=== PATIENT | male | born 1965 | race African-American/Black ===

== ENCOUNTER 2019-06-17 23:03 | Inpatient (IN) | payer SELFPAY ==
[~2019-06-17] VITALS: Ht 170.2 cm; Wt 85.3 kg
[~2019-06-17 23:03] MED LIST: IBUPROFEN600 MG ORAL; PENICILLIN V P500 MG PO; VICODIN 5-5001 EACH PO
[2019-06-17 23:12] VITALS: BP 174/97
--- NOTE | 2019-06-17 23:12 | NUR ---
ED Nurse Note: Patient HAYLEE DYKES from home c/o left sided pain radiating to his back x1 day. Denies nausea, vomiting, diarrhea. Afebrile. Per pt, pain started after he ate spicy food. Not in any distress. Pt placed on rn cardiac rehab.
--- NOTE | 2019-06-17 23:15 | NUR ---
ED Nurse Note: ERMD at bedside.
--- NOTE | 2019-06-17 23:18 | NUR ---
ED Nurse Note: IV line established. Blood and urine specimen collected and sent to lab.
--- NOTE | 2019-06-17 23:24 | Emergency Room Report ---
History of Present Illness General Chief Complaint: Abdominal Pain Source: Patient Present Illness HPI 54-year-old male presents ED for evaluation. Brought in by EMS from home. Complaining of left-sided pain which started tonight. Dull, 8 out of 10, radiating to back. Denies nausea or vomiting. Denies epigastric pain. Denies diarrhea. States that he was moving heavy objects earlier. No other aggravating relieving factors. Denies any other associated symptoms COVID-19 risk:Travel to affect: No Has patient experienced baugh: No Allergies: Coded Allergies: No Known Allergies (Unverified , 06/17/19) Patient History Past Medical History: psych hx Past Surgical History: none Pertinent Family History: none Social History: Denies: smoking, alcohol use, drug use Immunizations: UTD Reviewed Nursing Documentation: PMH: Agreed; PSxH: Agreed Nursing Documentation-PMH History Of Psychiatric Problem: Yes - depression and anxiety Review of Systems All Other Systems: negative except mentioned in HPI Physical Exam Vital Signs Date Time Temp Pulse Resp B/P (MAP) Pulse Ox O2 Delivery O2 Flow Rate FiO2 06/17/19 23:06 98.2 97 20 174/97 (122) 97 Room Air Sp02 EP Interpretation: reviewed, normal General Appearance: no apparent distress, alert, GCS 15, non-toxic Head: normocephalic, atraumatic Eyes: bilateral eye normal inspection, bilateral eye PERRL ENT: hearing grossly normal, normal pharynx, no angioedema, normal voice Neck: full range of motion, supple/symm/no masses Respiratory: chest non-tender, lungs clear, normal breath sounds, speaking full sentences Cardiovascular #1: regular rate, rhythm, no edema Cardiovascular #2: 2+ carotid (R), 2+ carotid (L), 2+ radial (R), 2+ radial (L) , 2+ dorsalis pedis (R), 2+ dorsalis pedis (L) Gastrointestinal: normal bowel sounds, non tender, soft, non-distended, no guarding, no rebound Rectal: deferred Genitourinary: normal inspection, CVA tenderness (L) Musculoskeletal: back normal, normal range of motion, gait/station normal, non- tender Neurologic: alert, motor strength/tone normal, oriented x3, sensory intact, responsive, speech normal Psychiatric: judgement/insight normal, memory normal, mood/affect normal, no suicidal/homicidal ideation Reflexes: 3+ bicep (R), 3+ bicep (L), 3+ tricep (R), 3+ tricep (L), 3+ knee (R) , 3+ knee (L) Skin: no rash Lymphatic: no adenopathy Medical Decision Making Diagnostic Impression: Primary Impression: Kidney stone Additional Impression: Intractable pain ER Course Hospital Course 54-year-old M presents to ED with L flank pain Differential diagnosis includes-appendicitis, cholecystitis, kidney stone, pyelonephritis Clinical course Patient placed on stretcher. After initial history and physical I ordered labs , IV fluids, pain medications and CT scan Labs - no leukocytosis, BUN 19, LFTs normal, UA - gross blood CT scan shows distal 15mm stone with severe hydroureteroneprhosis Patient has continued pain and vomiting. Patient will require admission. Discussed with Dr. Chappell (urology) and he will consult Patient admitted to Dr Hernandez's service I feel this is a highly complex case requiring extensive working including EKG/ Rhythm strip, Xray/CT/US, Blood/urine lab work, repeat exams while in ED, and administration of strong opiates/narcotics for pain control, admission to hospital or close patient follow up. Diagnosis - kidney stone, intractable pain admitted to floor in serious condition Labs Test 06/17/19 23:15 06/17/19 23:24 Urine Color Pale yellow Urine Appearance Slightly cloudy Urine pH 7 (4.5-8.0) Urine Specific [place] 1.005 (1.005-1.035) Urine Protein 1+ (NEGATIVE) Urine Glucose (UA) Negative (NEGATIVE) Urine Ketones 3+ (NEGATIVE) Urine Blood 5+ (NEGATIVE) Urine Nitrite Negative (NEGATIVE) Urine Bilirubin Negative (NEGATIVE) Urine Urobilinogen Normal MG/DL (0.0-1.0) Urine Leukocyte Esterase Trace (NEGATIVE) Urine RBC Tntc /HPF (0 - 0) Urine WBC 0-2 /HPF (0 - 0) Urine Squamous Epithelial Cells None /LPF (NONE/OCC) Urine Bacteria Few /HPF (NONE) White Blood Count 6.5 K/UL (4.8-10.8) Red Blood Count 5.03 M/UL (4.70-6.10) Hemoglobin 14.4 G/DL (14.2-18.0) Hematocrit 41.2 % (42.0-52.0) Mean Corpuscular Volume 82 FL (80-99) Mean Corpuscular Hemoglobin 28.7 PG (27.0-31.0) Mean Corpuscular Hemoglobin Concent 35.0 G/DL (32.0-36.0) Red Cell Distribution Width 12.3 % (11.6-14.8) Platelet Count 199 K/UL (150-450) Mean Platelet Volume 7.3 FL (6.5-10.1) Neutrophils (%) (Auto) 65.6 % (45.0-75.0) Lymphocytes (%) (Auto) 25.5 % (20.0-45.0) Monocytes (%) (Auto) 7.4 % (1.0-10.0) Eosinophils (%) (Auto) 0.6 % (0.0-3.0) Basophils (%) (Auto) 0.9 % (0.0-2.0) Sodium Level 139 MMOL/L (136-145) Potassium Level 3.8 MMOL/L (3.5-5.1) Chloride Level 101 MMOL/L (98-107) Carbon Dioxide Level 23 MMOL/L (21-32) Anion Gap 15 mmol/L (5-15) Blood Urea Nitrogen 19 mg/dL (7-18) Creatinine 1.3 MG/DL (0.55-1.30) Estimat Glomerular Filtration Rate > 60 mL/min (>60) Glucose Level 107 MG/DL (74-106) Calcium Level 9.4 MG/DL (8.5-10.1) Total Bilirubin 0.7 MG/DL (0.2-1.0) Aspartate Amino Transf (AST/SGOT) 20 U/L (15-37) Alanine Aminotransferase (ALT/SGPT) 36 U/L (12-78) Alkaline Phosphatase 74 U/L (46-116) Total Protein 7.7 G/DL (6.4-8.2) Albumin 4.1 G/DL (3.4-5.0) Globulin 3.6 g/dL Albumin/Globulin Ratio 1.1 (1.0-2.7) Lipase 59 U/L (73-393) CT/MRI/US Diagnostic Results CT/MRI/US Diagnostic Results : Imaging Test Ordered: CT a/P Impression COMPARISON: No relevant prior studies available. FINDINGS: Lung bases: No mass. No consolidation. ABDOMEN: Liver: Enlarged. Gallbladder and bile ducts: Unremarkable. Pancreas: No ductal dilation. Spleen: Unremarkable. Adrenals: Unremarkable. Kidneys and ureters: Right kidney is unremarkable. Nonobstructive stones in the left kidney. Severe left hydroureteronephrosis secondary to a 15 mm stone in the distal ureter. Stomach and bowel: No bowel obstruction. No bowel wall thickening. Colonic diverticulosis. PELVIS: Appendix: No evidence of appendicitis. Bladder: No stones. Reproductive: Unremarkable. ABDOMEN and PELVIS: Intraperitoneal space: Unremarkable. Bones/joints: No acute fractures. Soft tissues: Unremarkable. Vasculature: No abdominal aortic aneurysm. Lymph nodes: No enlarged lymph nodes. IMPRESSION: Nonobstructive stones in the left kidney. Severe left hydroureteronephrosis secondary to a 15 mm stone in the distal ureter. Hepatomegaly. Colonic diverticulosis. Last Vital Signs Date Time Temp Pulse Resp B/P (MAP) Pulse Ox O2 Delivery O2 Flow Rate FiO2 06/17/19 23:06 98.2 97 20 174/97 (122) 97 Room Air Status: improved Disposition: ADMITTED INPATIENT Condition: Serious Abram Delgado MD Jun 17, 2019 23:24
[2019-06-17] MEDS ORDERED: Ketorolac 30mg Inj IV ONE (23:30)
[2019-06-17 23:47] LABS: APPEARANCE,URINE SLIGHTLY CLOUDY; BILIRUBIN, URINE NEGATIVE (NEGATIVE); COLOR,URINE PALE YELLOW; GLUCOSE, URINE (UA) NEGATIVE (NEGATIVE); KETONES,URINE 3+ (NEGATIVE); NITRITE,URINE NEGATIVE (NEGATIVE); PH,URINE 7 (4.5-8.0); PROTEIN,URINE 1+ (NEGATIVE); UROBILINOGEN,URINE NORMAL MG/DL (0.0-1.0)
[2019-06-17 23:52] LABS: ANION GAP 15 mmol/L (5-15); BLOOD UREA NITROGEN 19 mg/dL (7-18); CALCIUM 9.4 MG/DL (8.5-10.1); CARBON DIOXIDE 23 MMOL/L (21-32); CHLORIDE 101 MMOL/L (98-107); CREATININE 1.3 MG/DL (0.55-1.30); POTASSIUM 3.8 MMOL/L (3.5-5.1); SODIUM 139 MMOL/L (136-145)
[2019-06-17 23:54] LABS: BASOPHILS % (AUTO) 0.9 % (0.0-2.0); EOSINOPHILS % (AUTO) 0.6 % (0.0-3.0); HEMATOCRIT 41.2 % (42.0-52.0); HEMOGLOBIN 14.4 G/DL (14.2-18.0); LYMPHOCYTES % (AUTO) 25.5 % (20.0-45.0); MEAN CORPUSCULAR VOLUME 82 FL (80-99); MONOCYTES % (AUTO) 7.4 % (1.0-10.0); NEUTROPHILS % (AUTO) 65.6 % (45.0-75.0); PLATELET COUNT 199 K/UL (150-450); RED BLOOD COUNT 5.03 M/UL (4.70-6.10); RED CELL DISTRIBUTION WIDTH 12.3 % (11.6-14.8); WHITE BLOOD COUNT 6.5 K/UL (4.8-10.8)
[2019-06-17 23:57] LABS: ALANINE AMINOTRANSFERASE 36 U/L (12-78); ALBUMIN 4.1 G/DL (3.4-5.0); ALBUMIN/GLOBULIN RATIO 1.1 (1.0-2.7); ALKALINE PHOSPHATASE 74 U/L (46-116); ASPARTATE AMINO TRANSFERASE 20 U/L (15-37); BILIRUBIN,TOTAL 0.7 MG/DL (0.2-1.0)
[2019-06-18] VITALS (7 sets, daily range): BP systolic 143–166; BP diastolic 75–103
[2019-06-18] MEDS ORDERED: Morphine Sulfate 4mg/ml Inj (IV USE ONLY) IVP ONE
[2019-06-18 00:12] LABS: LEUKOCYTE ESTERASE ,URINE TRACE (NEGATIVE)
[2019-06-18] MEDS ORDERED: HYDROmorphone 1mg/ml Carpuject IVP ONE ×2 (00:30→04:30)
--- NOTE | 2019-06-18 00:50 | NUR ---
ED Nurse Note: Pt was taken for CT via broderick, accompanied by a tech.
--- NOTE | 2019-06-18 01:17 | NUR ---
ED Nurse Note: Pt came back from CT, not in any distress.
--- NOTE | 2019-06-18 01:33 | Diagnostic Imaging Report ---
EXAM: CT Abdomen and Pelvis Without Intravenous Contrast CLINICAL HISTORY: ABD PAIN TECHNIQUE: Axial computed tomography images of the abdomen and pelvis without intravenous contrast. CTDI is 5 mGy and DLP is 292 mGy-cm. One or more of the following dose reduction techniques were used: automated exposure control, adjustment of the mA and/or kV according to patient size, use of iterative reconstruction technique. COMPARISON: No relevant prior studies available. FINDINGS: Lung bases: No mass. No consolidation. ABDOMEN: Liver: Enlarged. Gallbladder and bile ducts: Unremarkable. Pancreas: No ductal dilation. Spleen: Unremarkable. Adrenals: Unremarkable. Kidneys and ureters: Right kidney is unremarkable. Nonobstructive stones in the left kidney. Severe left hydroureteronephrosis secondary to a 15 mm stone in the distal ureter. Stomach and bowel: No bowel obstruction. No bowel wall thickening. Colonic diverticulosis. PELVIS: Appendix: No evidence of appendicitis. Bladder: No stones. Reproductive: Unremarkable. ABDOMEN and PELVIS: Intraperitoneal space: Unremarkable. Bones/joints: No acute fractures. Soft tissues: Unremarkable. Vasculature: No abdominal aortic aneurysm. Lymph nodes: No enlarged lymph nodes. IMPRESSION: Nonobstructive stones in the left kidney. Severe left hydroureteronephrosis secondary to a 15 mm stone in the distal ureter. Hepatomegaly. Colonic diverticulosis.
[2019-06-18] MEDS ORDERED: MIRTAZAPINE15 M3 ORAL (02:46)
--- NOTE | 2019-06-18 04:17 | NUR ---
ED Nurse Note: Report given to Anya RN.
--- NOTE | 2019-06-18 04:17 | NUR ---
NURSE NOTES: Receive a report from VLAD Ordaz from ED.
--- NOTE | 2019-06-18 04:35 | NUR ---
TRANSFER TO FLOOR: Patient transferred to Medr unit. Report given to Anya RN. Pt alert and oriented, verbally responsive. No SOB. Breathing even and unlabored. Sinus rhythm. IV line on left AC 20g patent and intact. Med recon done. No skin issues. All belongings was gievn to the patient. Pt's home medication was kept inside the medroom.
--- NOTE | 2019-06-18 04:45 | NUR ---
NURSE NOTES: Pt admitted from ED via gurney. Awake and alert. No acute distress noted. Despite getting pain medication pt still has pain 8/10. Breathing is even and non labored. No N/V noted. IV S/L on left AC without infiltration. Given room orientation. Checking belongings. Call light within reach. Will continue to monitor.
--- NOTE | 2019-06-18 05:00 | NUR ---
NURSE NOTES: Call Dr. Decker's office for admission order.
--- NOTE | 2019-06-18 05:07 | NUR ---
NURSE NOTES: Receive call-back from Dr. Anderson for admission orders including resuming home medication, consult with Dr. Chappell for Urology, prn medication. Read back orders. Order noted and carried out. Will continue to monitor.
[2019-06-18] MEDS ORDERED: HYDROmorphone 1mg/ml Carpuject IVP PRN (05:15)
--- NOTE | 2019-06-18 07:00 | NUR ---
NURSE NOTES: Pt had self-voiding in strainer but did not see any sediment. Pain is still 7/10. Given pain medication as ordered. Explain for NPO except ice chips and po medication d/t possible procedure. Pt understood. Will continue to monitor.
[2019-06-18] MEDS: HYDROmorphone 1mg/ml Carpuject IVP PRN ×5 (07:02→22:23)
--- NOTE | 2019-06-18 07:30 | NUR ---
NURSE NOTES: Patient is in bed awake and able to verbalize needs. Stable. C/o 6/10 pain, pain medication administration schedule discussed with patient, verbalized understanding. Patient instructed to use call light for assistance, verbalized understanding. Strainer with urinal at bedside. Patient agrees with plan of care. All safety measures provided. Patient is in bed in locked and lowest position with call light within reach. All needs met at this time. Will continue to monitor.
--- NOTE | 2019-06-18 07:30 | NUR ---
HAND-OFF: Report given to VLAD Knox. Round is done.
[2019-06-18 08:23] LABS: BASOPHILS % (AUTO) 1.3 % (0.0-2.0); HEMATOCRIT 40.5 % (42.0-52.0); HEMOGLOBIN 13.7 G/DL (14.2-18.0); INR 0.9 (0.9-1.1); LYMPHOCYTES % (AUTO) 11.2 % (20.0-45.0); MEAN CORPUSCULAR VOLUME 84 FL (80-99); MONOCYTES % (AUTO) 7.7 % (1.0-10.0); NEUTROPHILS % (AUTO) 79.7 % (45.0-75.0); PLATELET COUNT 203 K/UL (150-450); RED CELL DISTRIBUTION WIDTH 12.8 % (11.6-14.8); WHITE BLOOD COUNT 8.9 K/UL (4.8-10.8)
--- NOTE | 2019-06-18 08:45 | NUR ---
NURSE NOTES: patient taken to radiology for cxr.
[2019-06-18 09:18] LABS: ALANINE AMINOTRANSFERASE 45 U/L (12-78); ALBUMIN 3.8 G/DL (3.4-5.0); ALKALINE PHOSPHATASE 72 U/L (46-116); ANION GAP 14 mmol/L (5-15); ASPARTATE AMINO TRANSFERASE 31 U/L (15-37); BILIRUBIN,TOTAL 0.6 MG/DL (0.2-1.0); BLOOD UREA NITROGEN 20 mg/dL (7-18); CALCIUM 8.9 MG/DL (8.5-10.1); CARBON DIOXIDE 21 MMOL/L (21-32); CHLORIDE 104 MMOL/L (98-107); CREATININE 1.4 MG/DL (0.55-1.30); POTASSIUM 4.8 MMOL/L (3.5-5.1); SODIUM 139 MMOL/L (136-145)
--- NOTE | 2019-06-18 09:31 | NUR ---
RADIOLOGY DEPT., CHEST X-RAY PERFORMED.-P.DYE
--- NOTE | 2019-06-18 10:05 | Diagnostic Imaging Report ---
EXAM: XR Chest, 2 Views CLINICAL HISTORY: PREOP TECHNIQUE: Frontal and lateral views of the chest. COMPARISON: No relevant prior studies available. FINDINGS: Lungs: Subtle linear band in the lingula may represent linear atelectasis versus scarring. The lungs are otherwise clear. Pleural space: Unremarkable. The costophrenic angle are sharp. No visible pneumothorax. Heart: Unremarkable. No cardiomegaly. Mediastinum: Unremarkable. Bones/joints: Unremarkable. IMPRESSION: Subtle linear band in the lingula may represent linear atelectasis versus scarring.
--- NOTE | 2019-06-18 17:27 | History and Physical ---
History of Present Illness General Date patient seen: Jun 18, 2019 Reason for Hospitalization: nephrolithiasis Present Illness HPI Mr. Temple is a 54 yyear old male with no PMHx other than depression, presenting with 1 day of acute suprapubic pain. Allergies: Coded Allergies: No Known Allergies (Unverified , 06/17/19) Medication History Scheduled Mirtazapine* (Mirtazapine*), 15 MG ORAL BEDTIME, (Reported) Discontinued Medications Hydrocodone/Acetaminophen 5-500 (Vicodin 5-500), 1 TAB PO Q8H Discontinued Reason: Therapy completed Ibuprofen* (Motrin*), 600 MG ORAL THREE TIMES A DAY Discontinued Reason: Therapy completed Penicillin V Potassium* (Penvk*), 500 MG PO Q6H Discontinued Reason: Therapy completed Patient History Healthcare decision maker Resuscitation status Full Code Advanced Directive on File Review of Systems Constitutional: Denies: no symptoms, see HPI, chills, sweats, fever, malaise, weakness, other Eye: Denies: no symptoms, see HPI, eye pain, blurred vision, tearing, double vision, nose pain, nose congestion, acuity changes, discharge, other ENT: Denies: no symptoms, see HPI, ear pain, ear discharge, nose pain, nose congestion, throat pain, throat swelling, mouth pain, hearing loss, nasal discharge, other Respiratory: Denies: no symptoms, see HPI, cough, orthopnea, shortness of breath, stridor, wheezing, [place], sputum, other Cardiovascular: Denies: no symptoms, see HPI, chest pain, edema, palpitations, syncope, PND, other Gastrointestinal: Denies: no symptoms, see HPI, abdominal pain, constipation, diarrhea, nausea, vomiting, melena, hematemesis, other Genitourinary: Reports: pain Musculoskeletal: Denies: no symptoms, see HPI, back pain, gout, joint pain, joint swelling, muscle pain, muscle stiffness, other Skin: Denies: no symptoms, see HPI, rash, change in color, change in hair/nails , dryness, lesions, other Psychiatric: Denies: no symptoms, see HPI, prior hx, anxiety, depressed feelings, emotional problems, SI, HI, hallucinations, other Neurological: Denies: no symptoms, see HPI, headache, numbness, paresthesia, seizure, tingling, tremors, focal weakness, syncope, dizziness, other Endocrine: Denies: no symptoms, see HPI, excessive sweating, flushing, intolerance to temperature, increased thirst, increased urine, unexplained weight loss, other Hematologic/Lymphatic: Denies: no symptoms, see HPI, anemia, blood clots, easy bleeding, easy bruising, swollen glands, diathesis, other Physical Exam General Appearance: alert, mild distress HEENT: normocephalic, atraumatic Neck: supple Respiratory/Chest: lungs clear, normal breath sounds, no respiratory distress Cardiovascular/Chest: normal rate, regular rhythm Abdomen: non tender, soft Neurologic: alert, oriented x 3 Last 24 Hour Vital Signs Date Time Temp Pulse Resp B/P (MAP) Pulse Ox O2 Delivery O2 Flow Rate FiO2 06/18/19 16:00 98.4 74 18 149/87 (107) 95 06/18/19 12:00 98.5 76 19 145/94 (111) 99 06/18/19 11:41 76 145/94 06/18/19 09:00 Room Air 06/18/19 08:00 98.3 79 18 143/95 (111) 98 06/18/19 04:55 Room Air 06/18/19 04:35 98.0 79 19 133/74 99 Room Air 06/18/19 03:33 97.9 85 19 149/75 96 Room Air 06/18/19 01:15 98.0 88 18 145/88 97 Room Air 06/18/19 01:02 98.3 06/18/19 00:28 98.3 06/17/19 23:59 98.3 06/17/19 23:12 97 20 Room Air 06/17/19 23:12 98.2 97 20 174/97 97 Room Air 06/17/19 23:06 98.2 97 20 174/97 (122) 97 Room Air Laboratory Tests Test 06/17/19 23:15 06/17/19 23:24 06/18/19 07:40 Urine Color Pale yellow Urine Appearance Slightly cloudy Urine pH 7 (4.5-8.0) Urine Specific [place] 1.005 (1.005-1.035) Urine Protein 1+ (NEGATIVE) H Urine Glucose (UA) Negative (NEGATIVE) Urine Ketones 3+ (NEGATIVE) H Urine Blood 5+ (NEGATIVE) H Urine Nitrite Negative (NEGATIVE) Urine Bilirubin Negative (NEGATIVE) Urine Urobilinogen Normal MG/DL (0.0-1.0) Urine Leukocyte Esterase Trace (NEGATIVE) H Urine RBC Tntc /HPF (0 - 0) H Urine WBC 0-2 /HPF (0 - 0) Urine Squamous Epithelial Cells None /LPF (NONE/OCC) Urine Bacteria Few /HPF (NONE) White Blood Count 6.5 K/UL (4.8-10.8) 8.9 K/UL (4.8-10.8) Red Blood Count 5.03 M/UL (4.70-6.10) 4.80 M/UL (4.70-6.10) Hemoglobin 14.4 G/DL (14.2-18.0) 13.7 G/DL (14.2-18.0) L Hematocrit 41.2 % (42.0-52.0) L 40.5 % (42.0-52.0) L Mean Corpuscular Volume 82 FL (80-99) 84 FL (80-99) Mean Corpuscular Hemoglobin 28.7 PG (27.0-31.0) 28.4 PG (27.0-31.0) Mean Corpuscular Hemoglobin Concent 35.0 G/DL (32.0-36.0) 33.7 G/DL (32.0-36.0) Red Cell Distribution Width 12.3 % (11.6-14.8) 12.8 % (11.6-14.8) Platelet Count 199 K/UL (150-450) 203 K/UL (150-450) Mean Platelet Volume 7.3 FL (6.5-10.1) 7.3 FL (6.5-10.1) Neutrophils (%) (Auto) 65.6 % (45.0-75.0) 79.7 % (45.0-75.0) H Lymphocytes (%) (Auto) 25.5 % (20.0-45.0) 11.2 % (20.0-45.0) L Monocytes (%) (Auto) 7.4 % (1.0-10.0) 7.7 % (1.0-10.0) Eosinophils (%) (Auto) 0.6 % (0.0-3.0) 0.0 % (0.0-3.0) Basophils (%) (Auto) 0.9 % (0.0-2.0) 1.3 % (0.0-2.0) Sodium Level 139 MMOL/L (136-145) 139 MMOL/L (136-145) Potassium Level 3.8 MMOL/L (3.5-5.1) 4.8 MMOL/L (3.5-5.1) Chloride Level 101 MMOL/L (98-107) 104 MMOL/L (98-107) Carbon Dioxide Level 23 MMOL/L (21-32) 21 MMOL/L (21-32) Anion Gap 15 mmol/L (5-15) 14 mmol/L (5-15) Blood Urea Nitrogen 19 mg/dL (7-18) H 20 mg/dL (7-18) H Creatinine 1.3 MG/DL (0.55-1.30) 1.4 MG/DL (0.55-1.30) H Estimat Glomerular Filtration Rate > 60 mL/min (>60) > 60 mL/min (>60) Glucose Level 107 MG/DL (74-106) H 124 MG/DL (74-106) H Calcium Level 9.4 MG/DL (8.5-10.1) 8.9 MG/DL (8.5-10.1) Total Bilirubin 0.7 MG/DL (0.2-1.0) 0.6 MG/DL (0.2-1.0) Aspartate Amino Transf (AST/SGOT) 20 U/L (15-37) 31 U/L (15-37) Alanine Aminotransferase (ALT/SGPT) 36 U/L (12-78) 45 U/L (12-78) Alkaline Phosphatase 74 U/L (46-116) 72 U/L (46-116) Total Protein 7.7 G/DL (6.4-8.2) 7.5 G/DL (6.4-8.2) Albumin 4.1 G/DL (3.4-5.0) 3.8 G/DL (3.4-5.0) Globulin 3.6 g/dL 3.7 g/dL Albumin/Globulin Ratio 1.1 (1.0-2.7) 1.0 (1.0-2.7) Lipase 59 U/L (73-393) L Prothrombin Time 9.8 SEC (9.30-11.50) Prothromb Time International Ratio 0.9 (0.9-1.1) Activated Partial Thromboplast Time 26 SEC (23-33) Height (Feet): 5 Height (Inches): 8.00 Weight (Pounds): 175 Medications Current Medications Medications (Trade) Dose Ordered Sig/Raeann Route PRN Reason Start Time Stop Time Status Last Admin Dose Admin Acetaminophen (Tylenol) 650 mg Q6H PRN ORAL Mild Pain/Temp > 100.5 06/18/19 05:15 07/18/19 05:14 Amlodipine Besylate (Norvasc) 5 mg DAILY ORAL 06/18/19 11:30 07/18/19 11:29 06/18/19 11:41 Clonidine HCl (Catapres Tab) 0.1 mg BID PRN ORAL For High Blood Pressure 06/18/19 05:15 07/18/19 05:14 Hydromorphone HCl (Dilaudid) 0.5 mg Q2H PRN IVP Moderate Pain (Pain Scale 4-6) 06/18/19 05:15 06/25/19 05:14 Hydromorphone HCl (Dilaudid) 1 mg Q2H PRN IVP Severe Pain (Pain Scale 7-10) 06/18/19 05:15 06/25/19 05:14 06/18/19 16:24 Mirtazapine (Remeron) 15 mg BEDTIME ORAL 06/18/19 21:00 07/18/19 20:59 Ondansetron HCl (Zofran) 4 mg Q6H PRN IVP Nausea & Vomiting 06/18/19 05:15 07/18/19 05:14 Sodium Chloride 1,000 ml @ 100 mls/hr Q10H IV 06/18/19 05:15 07/18/19 05:14 06/18/19 05:15 Tamsulosin HCl (Flomax) 0.4 mg BEDTIME ORAL 06/18/19 21:00 07/18/19 20:59 Assessment/Plan Problem List: (1) Kidney stone ICD Codes: N20.0 - Calculus of kidney SNOMED: 84905962 (2) Intractable pain ICD Codes: R52 - Pain, unspecified SNOMED: 23016545 (3) Hydronephrosis ICD Codes: N13.30 - Unspecified hydronephrosis SNOMED: 60797918 Status: stable Diagnosis [place] I: Mr. Temple is a 54 M with a 15 mm kidney stone. #Left nephrolithiasis, 15 mm #Severe left sided hydroureteronephrosis -CT with above findings seen. -Urology contacted. Will see tmrw. -NPO after MN. -Pain control -IVF Time of note doesn't reflect time of encounter. Darlin Alaniz M.D. Jun 18, 2019 17:27
--- NOTE | 2019-06-18 19:15 | NUR ---
NURSE NOTES: Receive a report from VLAD Knox. Round is done. After pain medication given, pain level is 6/10. No acute distress noted. No stone passing yet. On NPO except ice chips and oral medication. Call light within reach. Will continue to monitor.
--- NOTE | 2019-06-18 19:26 | NUR ---
HAND-OFF: Report given to Evelyneo RN. Patient is stable.
[2019-06-18] MEDS: Tamsulosin 0.4mg cap ORAL SCH (21:08)
[2019-06-19] VITALS (7 sets, daily range): BP systolic 131–158; BP diastolic 51–98
[2019-06-19] MEDS: HYDROmorphone 1mg/ml Carpuject IVP PRN ×6 (00:55→22:00)
--- NOTE | 2019-06-19 07:00 | NUR ---
NURSE NOTES: Pt has been getting pain medication but says that medication did not work much. Will endorse to AM shift to follow up with MD. Will continue to monitor.
--- NOTE | 2019-06-19 07:30 | NUR ---
HAND-OFF: Report given to VLAD Knox. No noted stone passing after urination.
--- NOTE | 2019-06-19 07:30 | NUR ---
NURSE NOTES: Patient is in bed awake and able to verbalize needs. Stable. Denies pain or SOB. Patient instructed to use call light for assistance, verbalized understanding. Patient is in bed in locked and lowest position with call light within reach. All needs met at this time. Will continue to monitor.
[2019-06-19] MEDS ORDERED: HYDROcodone/Acetamin 5/325 tab ORAL PRN (13:30)
[2019-06-19] MEDS: HYDROcodone/Acetamin 10/325 tab ORAL PRN ×3 (13:44→23:06)
--- NOTE | 2019-06-19 16:22 | General Progress Note ---
Assessment/Plan Problem List: (1) Kidney stone ICD Codes: N20.0 - Calculus of kidney SNOMED: 45361688 (2) Intractable pain ICD Codes: R52 - Pain, unspecified SNOMED: 41023837 (3) Hydronephrosis ICD Codes: N13.30 - Unspecified hydronephrosis SNOMED: 00447368 Status: stable Assessment/Plan: #Left nephrolithiasis, 15 mm #Severe left sided hydroureteronephrosis -CT with above findings seen. -NPO after MN. -Urology to see. -Pain control with [place] 5/10/dilaudid 1 mg for mod/severe/BTP. -IVF Time spent: 36 mins, >50% on counseling and coordination of care. Subjective Date patient seen: Jun 19, 2019 Constitutional: Denies: no symptoms, chills, diaphoresis, fever, malaise, weakness, other HEENT: Denies: no symptoms, eye pain, blurred vision, tearing, double vision, ear pain, ear discharge, nose pain, nose congestion, throat pain, throat swelling, mouth pain, mouth swelling, other Cardiovascular: Denies: no symptoms, chest pain, edema, irregular heart rate, lightheadedness, palpitations, syncope, other Respiratory: Denies: no symptoms, cough, orthopnea, shortness of breath, SOB with excertion, SOB at rest, sputum, stridor, wheezing, other Gastrointestinal/Abdominal: Denies: no symptoms, abdomen distended, abdominal pain, black stools, tarry stools, blood in stool, constipated, diarrhea, difficulty swallowing, nausea, poor appetite, poor fluid intake, rectal bleeding , vomiting, other Genitourinary: Reports: pain Neurologic/Psychiatric: Denies: no symptoms, anxiety, depressed, emotional problems, headache, numbness, paresthesia, pre-existing deficit, seizure, tingling, tremors, weakness, other Endocrine: Denies: no symptoms, excessive sweating, flushing, intolerance to cold, intolerance to heat, increased hunger, increased thirst, increased urine, unexplained weight gain, unexplained weight loss, other Hematologic/Lymphatic: Denies: no symptoms, anemia, easy bleeding, easy bruising, other Allergies: Coded Allergies: No Known Allergies (Unverified , 06/17/19) Subjective wincing in pain, resting in bed, requesting something stronger for pain. Objective Last 24 Hour Vital Signs Date Time Temp Pulse Resp B/P (MAP) Pulse Ox O2 Delivery O2 Flow Rate FiO2 06/19/19 15:45 99.4 69 20 148/51 (83) 96 06/19/19 12:00 98.7 82 21 139/90 (106) 95 06/19/19 08:36 89 131/80 06/19/19 08:13 Room Air 06/19/19 08:00 99.8 89 21 131/80 (97) 95 06/19/19 04:00 99.4 83 18 142/86 (104) 92 06/19/19 00:00 99.4 80 18 136/98 (111) 95 06/18/19 21:00 Room Air 06/18/19 20:00 99.3 74 18 149/87 (107) 95 Intake and Output 06/18/19 06/19/19 18:59 06:59 Intake Total 1100 ml Output Total 25 ml Balance 1075 ml Intake IV Total 1100 ml Output Urine Total 25 ml Height (Feet): 5 Height (Inches): 8.00 Weight (Pounds): 175 General Appearance: no apparent distress, alert Neck: supple Cardiovascular: normal rate, regular rhythm Respiratory/Chest: lungs clear, normal breath sounds Abdomen: normal bowel sounds, non tender, soft Darlin Alaniz M.D. Jun 19, 2019 16:22
--- NOTE | 2019-06-19 19:25 | NUR ---
HAND-OFF: Report given to Carin CHU. Patient is stable.
--- NOTE | 2019-06-19 19:30 | NUR ---
NURSE NOTES: Received report & pt from Lisette CHU. Pt lying in bed, a&ox4, in room air. No s/s of acute distress & no c/o pain. IV site intact with IVF running as ordered. Plan of care discussed.
[2019-06-19] MEDS: Tamsulosin 0.4mg cap ORAL SCH (21:02)
[2019-06-20] MEDS: HYDROcodone/Acetamin 10/325 tab ORAL PRN ×5 (04:51→22:54)
[2019-06-20 04:55] VITALS: BP 153/91
[2019-06-20] MEDS: HYDROmorphone 1mg/ml Carpuject IVP PRN ×3 (05:59→16:01)
--- NOTE | 2019-06-20 07:31 | NUR ---
HAND-OFF: Report given to Diana CHU. Pt in stable condition.
--- NOTE | 2019-06-20 07:35 | NUR ---
NURSE NOTES: Report received from VLAD Del Rosario. Patient was sleeping and comfortable. Bed is low and locked. Call light within reach. Will continue to monitor patient.
[2019-06-20 08:00] VITALS: BP 152/92
--- NOTE | 2019-06-20 09:30 | NUR ---
NURSE NOTES: Patient is in bed awake and able to verbalize needs. Stable. C/o 7/10 pain, pain medication administration schedule discussed with patient. Patient instructed to use call light for assistance, verbalized understanding. Patient is in bed in locked and lowest position with call light within reach. All safety measures provided. All needs met at this time. Will continue to monitor.
--- NOTE | 2019-06-20 10:09 | NUR ---
NURSE NOTES: paged Dr. Ceron regarding consult. Awaiting return call.
--- NOTE | 2019-06-20 10:25 | NUR ---
NURSE NOTES: Spoke to Dr. Ceron regarding consult, will continue plan of care.
[2019-06-20 12:00] VITALS: BP 149/95
[2019-06-20] MEDS: cefTRIAXone 1 GM in D5W 55 ML IVPB SCH (15:58)
[2019-06-20 16:00] VITALS: BP 164/96
--- NOTE | 2019-06-20 16:45 | Consultation ---
DATE OF CONSULTATION: 06/20/2019 UROLOGY CONSULTATION CHIEF COMPLAINT/HISTORY OF PRESENT ILLNESS: I was asked by Dr. Decker to evaluate this 54-year-old gentleman regarding history of a 15 mm distal left ureteral stone with hydronephrosis and colic secondary to same. The patient has no history of previous kidney stones. He presented to the hospital with 1 day of left lower quadrant and suprapubic pain. Workup revealed the stone as described above. PAST MEDICAL HISTORY: Depression. PAST SURGICAL HISTORY: Left inguinal hernia repair. MEDICATIONS: Please see chart for current medication and administration details. ALLERGIES: No known drug allergies. SOCIAL HISTORY: Unremarkable for tobacco, alcohol, or drug use. FAMILY HISTORY: Noncontributory. REVIEW OF SYSTEMS: A 14-system review of systems unremarkable outside what is described above. PHYSICAL EXAMINATION: GENERAL: The patient is a middle-aged gentleman, awake and alert, oriented x4, pleasant, mild distress. HEENT: NC/AT. EOMI. Oropharynx clear. NECK: Supple. CHEST: Within normal limits. ABDOMEN: Soft, tender to palpation in the left lower quadrant and some left CVA tenderness. EXTREMITIES: Warm and well perfused. No cyanosis, clubbing, or edema. BACK: Left CVA tenderness to percussion. NEUROLOGIC: Nonfocal. GENITOURINARY: Reveals normal male external genitalia. LABORATORY DATA: White blood cell count 8.9, hematocrit 40.5, platelets 203. PT, PTT, and INR within normal limits. Sodium , potassium 4.8, chloride 104, bicarbonate 21, BUN 20, creatinine 1.4, glucose 124, calcium 8.9. LFTs within normal limits. Urinalysis, specific gravity 1.005, pH 7.0. Dip test notable for 1+ protein, 3+ ketones, 5+ occult blood. Microanalysis essentially unremarkable. DIAGNOSTIC IMAGING: CT scan of the abdomen and pelvis reveals a 15 mm stone in the distal left ureter with severe hydronephrosis secondary to same. The right kidney is unremarkable. Other findings as noted. ASSESSMENT AND PLAN: In summary, the patient is a 54-year-old gentleman a history of left lower quadrant abdominal pain. Workup reveals a 15 millimeter stone in the distal left ureter with hydronephrosis secondary to same. Physical exam reveals left CVA tenderness. Laboratory data essentially unremarkable. I discussed these findings today with the patient at bedside. We will plan for left ureteroscopy laser lithotripsy, double-J stent placement, cystoscopy and fluoroscopy for the same. The risks, benefits and alternatives of procedure were discussed with the patient and informed consent was obtained. We will schedule him for tomorrow if possible. We will keep him NPO past midnight for the same. I will cover him with Rocephin for perioperative prophylaxis. Thank you for allowing me to participate in the care of this nice gentleman. Please do not hesitate to contact me for any questions that you may further have regarding his care. I will see him with you as needed. Real Ceron M.D. DR: Leroy JOB#: [id number] CC:
--- NOTE | 2019-06-20 16:53 | Anethesia Preoperative Eval ---
Anesthesia Pre-op PMH/ROS General Date of Evaluation: Jun 20, 2019 Time of Evaluation: 16:47 Anesthesiologist: Salvador ASA Score: ASA 3 Mallampati Score Class I : Soft palate, uvula, fauces, pillars visible Class II: Soft palate, uvula, fauces visible Class III: Soft palate, base of uvula visible Class IV: Only hard plate visible Mallampati Classification: Class II Surgeon: Mike Diagnosis: Back Pain Surgical Procedure: L Uereteroscopy, Laser Lithotripsy, JJ Stent Placement Anesthesia History: none Family History: no anesthesia problems Allergies: Coded Allergies: No Known Allergies (Unverified , 06/17/19) Medications: see eMAR Patient NPO?: Yes Past Medical History Cardiovascular: Reports: HTN Neurologic/Psychiatric: Reports: depression/anxiety PSxH Narrative: Scrotal Sx Anesthesia Pre-op Phys. Exam Physician Exam Last Vital Signs Date Time Temp Pulse Resp B/P (MAP) Pulse Ox O2 Delivery O2 Flow Rate FiO2 06/20/19 13:54 98.4 06/20/19 12:00 95 18 149/95 (113) 95 06/20/19 09:00 Room Air Constitutional: NAD Neurologic: CN 2-12 intact Cardiovascular: RRR Respiratory: CTA Gastrointestinal: S/NT/ND Airway Exam Mallampati Score: Class II MO: full ROM: limited Teeth: missing, intact Anesthesia Pre-op A/P Labs Labs Test 06/17/19 23:15 06/17/19 23:24 06/18/19 07:40 Urine Color Pale yellow Urine Appearance Slightly cloudy Urine pH 7 (4.5-8.0) Urine Specific [place] 1.005 (1.005-1.035) Urine Protein 1+ (NEGATIVE) Urine Glucose (UA) Negative (NEGATIVE) Urine Ketones 3+ (NEGATIVE) Urine Blood 5+ (NEGATIVE) Urine Nitrite Negative (NEGATIVE) Urine Bilirubin Negative (NEGATIVE) Urine Urobilinogen Normal MG/DL (0.0-1.0) Urine Leukocyte Esterase Trace (NEGATIVE) Urine RBC Tntc /HPF (0 - 0) Urine WBC 0-2 /HPF (0 - 0) Urine Squamous Epithelial Cells None /LPF (NONE/OCC) Urine Bacteria Few /HPF (NONE) White Blood Count 6.5 K/UL (4.8-10.8) 8.9 K/UL (4.8-10.8) Red Blood Count 5.03 M/UL (4.70-6.10) 4.80 M/UL (4.70-6.10) Hemoglobin 14.4 G/DL (14.2-18.0) 13.7 G/DL (14.2-18.0) Hematocrit 41.2 % (42.0-52.0) 40.5 % (42.0-52.0) Mean Corpuscular Volume 82 FL (80-99) 84 FL (80-99) Mean Corpuscular Hemoglobin 28.7 PG (27.0-31.0) 28.4 PG (27.0-31.0) Mean Corpuscular Hemoglobin Concent 35.0 G/DL (32.0-36.0) 33.7 G/DL (32.0-36.0) Red Cell Distribution Width 12.3 % (11.6-14.8) 12.8 % (11.6-14.8) Platelet Count 199 K/UL (150-450) 203 K/UL (150-450) Mean Platelet Volume 7.3 FL (6.5-10.1) 7.3 FL (6.5-10.1) Neutrophils (%) (Auto) 65.6 % (45.0-75.0) 79.7 % (45.0-75.0) Lymphocytes (%) (Auto) 25.5 % (20.0-45.0) 11.2 % (20.0-45.0) Monocytes (%) (Auto) 7.4 % (1.0-10.0) 7.7 % (1.0-10.0) Eosinophils (%) (Auto) 0.6 % (0.0-3.0) 0.0 % (0.0-3.0) Basophils (%) (Auto) 0.9 % (0.0-2.0) 1.3 % (0.0-2.0) Sodium Level 139 MMOL/L (136-145) 139 MMOL/L (136-145) Potassium Level 3.8 MMOL/L (3.5-5.1) 4.8 MMOL/L (3.5-5.1) Chloride Level 101 MMOL/L (98-107) 104 MMOL/L (98-107) Carbon Dioxide Level 23 MMOL/L (21-32) 21 MMOL/L (21-32) Anion Gap 15 mmol/L (5-15) 14 mmol/L (5-15) Blood Urea Nitrogen 19 mg/dL (7-18) 20 mg/dL (7-18) Creatinine 1.3 MG/DL (0.55-1.30) 1.4 MG/DL (0.55-1.30) Estimat Glomerular Filtration Rate > 60 mL/min (>60) > 60 mL/min (>60) Glucose Level 107 MG/DL (74-106) 124 MG/DL (74-106) Calcium Level 9.4 MG/DL (8.5-10.1) 8.9 MG/DL (8.5-10.1) Total Bilirubin 0.7 MG/DL (0.2-1.0) 0.6 MG/DL (0.2-1.0) Aspartate Amino Transf (AST/SGOT) 20 U/L (15-37) 31 U/L (15-37) Alanine Aminotransferase (ALT/SGPT) 36 U/L (12-78) 45 U/L (12-78) Alkaline Phosphatase 74 U/L (46-116) 72 U/L (46-116) Total Protein 7.7 G/DL (6.4-8.2) 7.5 G/DL (6.4-8.2) Albumin 4.1 G/DL (3.4-5.0) 3.8 G/DL (3.4-5.0) Globulin 3.6 g/dL 3.7 g/dL Albumin/Globulin Ratio 1.1 (1.0-2.7) 1.0 (1.0-2.7) Lipase 59 U/L (73-393) Prothrombin Time 9.8 SEC (9.30-11.50) Prothromb Time International Ratio 0.9 (0.9-1.1) Activated Partial Thromboplast Time 26 SEC (23-33) Risk Assessment & Plan Assessment: ASA 3 Plan: GA Status Change Before Surgery: No Pre-Antibiotics Drug: Jose M Charles MD Jun 20, 2019 16:53
--- NOTE | 2019-06-20 16:54 | General Progress Note ---
Assessment/Plan Problem List: (1) Kidney stone ICD Codes: N20.0 - Calculus of kidney SNOMED: 15354307 (2) Intractable pain ICD Codes: R52 - Pain, unspecified SNOMED: 40201971 (3) Hydronephrosis ICD Codes: N13.30 - Unspecified hydronephrosis SNOMED: 79107192 Status: stable Assessment/Plan: #Left nephrolithiasis, 15 mm #Severe left sided hydroureteronephrosis -CT with above findings seen. -NPO after MN. -Urology to perform left ureteroscopy lasr lithotripsy tmrw. Consented. -Pain control with [place] 5/10/dilaudid 1 mg for mod/severe/BTP. -IVF #HTN Noted to be hypetensive to 160's. ?Pain vs. longstanding HTN. -Amlodipine 10 mg daily started. Time spent: 36 mins, >50% on counseling and coordination of care. Subjective Date patient seen: Jun 20, 2019 Constitutional: Denies: no symptoms, chills, diaphoresis, fever, malaise, weakness, other HEENT: Denies: no symptoms, eye pain, blurred vision, tearing, double vision, ear pain, ear discharge, nose pain, nose congestion, throat pain, throat swelling, mouth pain, mouth swelling, other Cardiovascular: Denies: no symptoms, chest pain, edema, irregular heart rate, lightheadedness, palpitations, syncope, other Respiratory: Denies: no symptoms, cough, orthopnea, shortness of breath, SOB with excertion, SOB at rest, sputum, stridor, wheezing, other Gastrointestinal/Abdominal: Denies: no symptoms, abdomen distended, abdominal pain, black stools, tarry stools, blood in stool, constipated, diarrhea, difficulty swallowing, nausea, poor appetite, poor fluid intake, rectal bleeding , vomiting, other Genitourinary: Reports: flank pain, pain Neurologic/Psychiatric: Denies: no symptoms, anxiety, depressed, emotional problems, headache, numbness, paresthesia, pre-existing deficit, seizure, tingling, tremors, weakness, other Endocrine: Denies: no symptoms, excessive sweating, flushing, intolerance to cold, intolerance to heat, increased hunger, increased thirst, increased urine, unexplained weight gain, unexplained weight loss, other Hematologic/Lymphatic: Denies: no symptoms, anemia, easy bleeding, easy bruising, other Allergies: Coded Allergies: No Known Allergies (Unverified , 06/17/19) Subjective still in pain from the stone, which didn't pass. resting in bed. no fver, chills Objective Last 24 Hour Vital Signs Date Time Temp Pulse Resp B/P (MAP) Pulse Ox O2 Delivery O2 Flow Rate FiO2 06/20/19 13:54 98.4 06/20/19 12:00 98.4 95 18 149/95 (113) 95 06/20/19 09:17 85 152/92 06/20/19 09:00 Room Air 06/20/19 08:00 99.0 85 17 152/92 (112) 95 06/20/19 04:55 98.7 89 17 153/91 (111) 96 06/19/19 23:22 98.7 80 17 158/95 (116) 96 06/19/19 21:00 Room Air 06/19/19 20:00 98.9 86 16 146/93 (110) 94 Intake and Output 06/19/19 06/20/19 19:00 07:00 Intake Total 1720 ml Output Total 550 ml 800 ml Balance -550 ml 920 ml Intake Oral 720 ml IV Total 1000 ml Output Urine Total 550 ml 800 ml # Voids 2 Height (Feet): 5 Height (Inches): 8.00 Weight (Pounds): 175 General Appearance: alert, mild distress Neck: supple Cardiovascular: normal rate, regular rhythm Respiratory/Chest: lungs clear, normal breath sounds Abdomen: non tender, soft Neurologic: alert, oriented x 3 Darlin Alaniz M.D. Jun 20, 2019 16:54
--- NOTE | 2019-06-20 19:34 | NUR ---
HAND-OFF: Report given to Eulalio CHU. Endorsed that plan of care of patient is surgery tomorrow. Consent signed. Endorsed pain management. Patient is in bed and comfortable.
--- NOTE | 2019-06-20 19:47 | NUR ---
NURSE NOTES: Received Report from VLAD Knox, pt is A/O x4, breaths even regular and unlabored on RA. Pt c/o pain6/10, will continue with pain management plan of care. Pt has a R wrist 20G with i.v fluids running, patent and asymptomatic . Bed in low locked position and call light with in reach
[2019-06-20 20:00] VITALS: BP 156/82
[2019-06-20] MEDS: Tamsulosin 0.4mg cap ORAL SCH (20:37)
[2019-06-21] VITALS (12 sets, daily range): BP systolic 144–173; BP diastolic 78–113
[2019-06-21] MEDS: HYDROmorphone 1mg/ml Carpuject IVP PRN ×2 (01:39→11:50)
[2019-06-21] MEDS: HYDROcodone/Acetamin 10/325 tab ORAL PRN ×3 (03:06→16:14)
--- NOTE | 2019-06-21 07:20 | NUR ---
HAND-OFF: Report given to osvaldo Chaves.
--- NOTE | 2019-06-21 07:34 | NUR ---
NURSE NOTES: Received report from VLAD Tsai. Patient is in bed. Bed low and locked, Call light within reach. Patient is stable. No signs of distress. IV noted in the Right wrist, running IVF. Will continue to monitor.
--- NOTE | 2019-06-21 12:36 | General Progress Note ---
Assessment/Plan Status: stable Assessment/Plan: #Left nephrolithiasis, 15 mm #Severe left sided hydroureteronephrosis -Plan for lithotripsy today -continue supportive care, pain control -contnue IV fluids #HTN -continue amlodipine Time spent on encounter: 35 mins, >50% on pt counseling, coordination of care. I spent an additional 35 minutes on review of medical records including prior outside hospital records, consult notes, progress notes, procedures, imaging, labs, hemodynamics, and other clinical documentation. Subjective Date patient seen: Jun 21, 2019 Time patient seen: 12:00 ROS Limited/Unobtainable: No Constitutional: Denies: chills Cardiovascular: Denies: chest pain Respiratory: Denies: cough Gastrointestinal/Abdominal: Denies: abdomen distended, abdominal pain Genitourinary: Denies: burning, frequency, hematuria Allergies: Coded Allergies: No Known Allergies (Unverified , 06/17/19) Subjective Follow up for 15 mm nephrolithiasis No new complaints Going for lithotripsy today Objective Last 24 Hour Vital Signs Date Time Temp Pulse Resp B/P (MAP) Pulse Ox O2 Delivery O2 Flow Rate FiO2 06/21/19 09:20 82 151/82 06/21/19 09:00 Room Air 06/21/19 08:00 98.6 82 22 151/82 (105) 94 06/21/19 04:00 99.2 82 17 149/86 (107) 94 06/21/19 00:00 99.4 89 15 159/91 (113) 94 06/20/19 21:00 Room Air 06/20/19 20:00 97.8 84 17 156/82 (106) 95 06/20/19 19:21 98.4 06/20/19 17:14 164/96 06/20/19 16:00 99.9 89 18 164/96 (118) 95 Intake and Output 06/20/19 06/21/19 19:00 07:00 Intake Total 860 ml Balance 860 ml Intake Oral 360 ml IV Total 500 ml # Voids 3 2 Height (Feet): 5 Height (Inches): 8.00 Weight (Pounds): 175 General Appearance: alert Neck: normal alignment, supple Cardiovascular: normal rate, regular rhythm Respiratory/Chest: lungs clear, normal breath sounds Abdomen: non tender, soft Carlos Cifuentes MD Jun 21, 2019 12:36
--- NOTE | 2019-06-21 13:59 | NUR ---
CASE MANAGEMENT: INITIAL REVIEW 54YR OLD MALE FROM HOME CC: ABD PAIN SI:KIDNEY STONE . INTRACTABLE PAIN 98.3 97 20 174/97 97% ON RA BU 19 BG 107 LIPASE 59 IS: IV PEPCID X1 IV TORADOL X1 TD LIDOCAINE X1 IV MORPHINE SULFATE X1 IV DILAUDID X1 IV ZOFRAN X1 \: 3E MED SURG UNIT PLAN: UROLOGY AND SURG CONSULT CASE MANAGEMENT: REVIEW 06/18/19 SI:SEVERE LEFT KIDNEY HYDROURETERONEPHROSIS . KIDNEY STONE . INTRACTABLE PAIN 98.4 74 18 149/87 95% ON RA BUN 20 CREAT 1.4 IS: IV NS @100ML/HR IV ROCEPHIN QD NORVASC PO QD IV DILAUDID Q2HR/PRN CATAPRES PO QHS/PRN CT ABD/PEL- Nonobstructive stones in the left kidney CHEST X-RAY- Subtle linear band in the lingula \: 3E MED SURG UNIT CASE MANAGEMENT: REVIEW 06/19/19 SI:SEVERE LEFT KIDNEY HYDROURETERONEPHROSIS . KIDNEY STONE . INTRACTABLE PAIN 99.8 89 21 131/80 95% ON RA IS: IV NS @100ML/HR IV ROCEPHIN QD NORVASC PO QD IV DILAUDID Q2HR/PRN CATAPRES PO QHS/PRN \: 3E MED SURG UNIT PLAN: SURGERY - REMOVAL OF 15MM STONE CASE MANAGEMENT: REVIEW 06/20/19 SI:SEVERE LEFT KIDNEY HYDROURETERONEPHROSIS .KIDNEY STONE . INTRACTABLE PAIN 99.0 85 17 152/92 95% ON RA IS: IV NS @100ML/HR IV ROCEPHIN QD NORVASC PO QD IV DILAUDID Q2HR/PRN CATAPRES PO QHS/PRN \: 3E MED SURG UNIT PLAN: SURGERY IN AM CASE MANAGEMENT: REVIEW 06/21/19 SI:SEVERE LEFT KIDNEY HYDROURETERONEPHROSIS .KIDNEY STONE . INTRACTABLE PAIN 99.0 85 17 152/92 95% ON RA IS: IV NS @100ML/HR IV ROCEPHIN QD NORVASC PO QD IV DILAUDID Q2HR/PRN CATAPRES PO QHS/PRN \: 3E MED SURG UNIT PLAN: LITHOTRIPSY TODAY
[2019-06-21] MEDS ORDERED: Iothalamate Meglumine 60% 50ML INJ ONE (14:52)
[2019-06-21] MEDS ORDERED: fentaNYL 100 mcg/2 mL IV ONE (16:13)
[2019-06-21] MEDS ORDERED: Propofol 200mg/20ml IV ONE (16:14)
[2019-06-21] MEDS ORDERED: Midazolam 2mg/2ml Inj ONE (16:14)
[2019-06-21] MEDS ORDERED: Lidocaine 1% MPF 10mg/ml 5ml ONE (16:14)
[2019-06-21] MEDS: cefTRIAXone 1 GM in D5W 55 ML IVPB SCH (16:14)
--- NOTE | 2019-06-21 16:41 | Pre-Procedure Note/Attestation ---
Pre-Procedure Note/Attestation Complete Prior to Procedure Planned Procedure: left Procedure Narrative: Left ureteroscopy, laser lithotripsy, JJ stent placement, cystoscopy and fluoroscopy Indications for Procedure Pre-Operative Diagnosis: L ureteral stone, hydronephrosis and colic Attestation I attest that I discussed the nature of the procedure; its benefits; risks and complications; and alternatives (and the risks and benefits of such alternatives ), prior to the procedure, with the patient (or the patient's legal account representative). I attest that, if there was a reasonable possibility of needing a blood transfusion, the patient (or the patient's legal account representative) was given the [place] Department [employer] standardized written summary, pursuant to the Dheeraj Ronda Blood Safety Act ([place] Health and Safety Code # 1645, as amended). I attest that I re-evaluated the patient just prior to the surgery and that there has been no change in the patient's H&P, except as documented below: Real Ceron M.D. Jun 21, 2019 16:41
[2019-06-21] MEDS ORDERED: LR 1000ml ONE (17:00)
[2019-06-21] MEDS ORDERED: LR 1000ml 1,000 ML IVLG SCH (17:59)
[2019-06-21] MEDS ORDERED: Meperidine 25mg/0.5ml Inj (FOR RIGORS ONLY) IV PRN (18:00)
[2019-06-21] MEDS ORDERED: Ketorolac 30mg Inj IV PRN (18:00)
[2019-06-21] MEDS ORDERED: DiphenhydrAMINE 50mg/ml Inj IVP PRN (18:00)
[2019-06-21] MEDS ORDERED: NS Irrig 4000ml IRRIG ONE (18:01)
[2019-06-21] MEDS ORDERED: NS Irrig 1000ml IRRIG ONE (18:02)
--- NOTE | 2019-06-21 18:44 | Immediate Post-Op Evaluation ---
Immediate Post-Op Evalulation Immediate Post-Op Evalulation Procedure: Cysto, laser lithotrypsy, L ureteral stent placement Date of Evaluation: Jun 21, 2019 Time of Evaluation: 18:42 IV Fluids: 600 Blood Products: none Estimated Blood Loss: min Urinary Output: n/a Blood Pressure Systolic: 156 Blood Pressure Diastolic: 78 Pulse Rate: 88 Respiratory Rate: 20 O2 Sat by Pulse Oximetry: 99 Temperature (Fahrenheit): 98.6 Pain Score (1-10): 1 Nausea: No Vomiting: No Complications none Patient Status: awake, patent, none Hydration Status: adequate Demond Pratt MD Jun 21, 2019 18:43
--- NOTE | 2019-06-21 19:00 | Procedure Note ---
DATE OF PROCEDURE: 06/21/2019 PREOPERATIVE DIAGNOSIS: Left distal ureteral stone with hydronephrosis secondary to same. POSTOPERATIVE DIAGNOSIS: Left distal ureteral stone with hydronephrosis secondary to same. PROCEDURE PERFORMED: Left ureteroscopy, laser lithotripsy, double-J stent placement, cystoscopy, and fluoroscopy. SURGEON: Real Ceron M.D. ANESTHESIA: General/LMA. ESTIMATED BLOOD LOSS: None. IV FLUIDS: IV crystalloid only. DRAINS, TUBES, AND CATHETERS: A 6-Cypriot x 24 cm double-J stent left indwelling. SPECIMENS: None. OPERATIVE INDICATION: The patient is a 54-year-old gentleman with a history of a 15 mmHg distal left ureteral stone with severe hydronephrosis and colic secondary to the same. He was counseled and elected to undergo the procedure described above. He was scheduled for this procedure at [facility] on June 21, 2019. OPERATIVE NOTE IN DETAIL: The patient was brought to the operating room and placed on the table in supine position. General anesthesia was then induced. Once the patient had his LMA in place, he was repositioned in dorsal lithotomy and draped and prepped in the usual sterile fashion. Using a semi-rigid ureteroscope, the patient's urethral meatus was calibrated and the scope was passed along the length of the urethra. The urethra and prostate were within normal limits. The bladder was entered and inspected. There was no evidence of masses, tumors, or stones and both ureteral orifices were identified. Attention was turned to the left ureteral orifice into which a 0.035 Glidewire was cannulated and used to pass the scope into the distal ureter. The scope was advanced up into the mid to distal ureter where the stone was encountered. Using a 365 holmium laser fiber on a setting of 0.8 joules and 8 hertz, I proceeded to fragment the stone in its entirety. Once this was done, I could pass the scope beyond the point of obstruction into the mid and proximal ureter without further evidence of obstruction, stone, or other abnormality. A descending ureteroscopy confirmed the same and there were no significant remaining stone fragments. The guidewire was left in place in the cyst and the ureteroscope was swapped out for the cystoscope. This was back fed over the wire and positioned at the left ureteral orifice. It was used to pass a 6-Cypriot x 24 cm double-J stent into the left renal collecting system with a good curl noted fluoroscopically within the kidney and cystoscopically within the bladder. Once the stent was in place, the bladder was evacuated through the scope and the scope was removed. The patient was taken out of dorsal lithotomy and placed back in supine position. He was cleaned, dried, and dressed. He was awakened and extubated without difficulty and transferred to recovery in stable condition. I was present and scrubbed for the entire duration of the case. All needle, sponge, and instrument counts reported correct. Real Ceron M.D. DR: RIK JOB#: [id number] CC:
--- NOTE | 2019-06-21 19:21 | NUR ---
NURSE NOTES: Received Report from VLAD Frances pt still out in surgery
--- NOTE | 2019-06-21 19:24 | NUR ---
HAND-OFF: Report given to Eulalio CHU. Patient is still in surgery.
--- NOTE | 2019-06-21 19:40 | NUR ---
NURSE NOTES: Received Report from RN Imelda, pt brought to his room via hospital bed s/p surgery, pt tolerated procedure well, pt is A/O x4, breaths even regular and unlabored on RA, pt voided, bloody output of 450cc prior to transfer to the med surge unit. Pt denies any pain, Pt has a R wrist 20G with i.v fluids running, patent and asymptomatic . Bed in low locked position and call light with in reach
[2019-06-21] MEDS: Tamsulosin 0.4mg cap ORAL SCH (20:42)
[2019-06-22] VITALS: BP 130/78
[2019-06-22 04:00] VITALS: BP 134/82
[2019-06-22] MEDS: HYDROcodone/Acetamin 10/325 tab ORAL PRN (05:29)
[2019-06-22 06:20] LABS: BASOPHILS % (AUTO) 1.3 % (0.0-2.0); EOSINOPHILS % (AUTO) 0.9 % (0.0-3.0); HEMATOCRIT 35.3 % (42.0-52.0); HEMOGLOBIN 12.1 G/DL (14.2-18.0); LYMPHOCYTES % (AUTO) 9.2 % (20.0-45.0); MEAN CORPUSCULAR VOLUME 83 FL (80-99); MONOCYTES % (AUTO) 9.4 % (1.0-10.0); NEUTROPHILS % (AUTO) 79.2 % (45.0-75.0); PLATELET COUNT 205 K/UL (150-450); RED BLOOD COUNT 4.28 M/UL (4.70-6.10); WHITE BLOOD COUNT 8.9 K/UL (4.8-10.8)
[2019-06-22 06:51] LABS: ANION GAP 11 mmol/L (5-15); BLOOD UREA NITROGEN 18 mg/dL (7-18); CALCIUM 8.2 MG/DL (8.5-10.1); CARBON DIOXIDE 23 MMOL/L (21-32); CHLORIDE 107 MMOL/L (98-107); CREATININE 1.2 MG/DL (0.55-1.30); POTASSIUM 3.7 MMOL/L (3.5-5.1); SODIUM 141 MMOL/L (136-145)
--- NOTE | 2019-06-22 07:55 | NUR ---
NURSE NOTES: Received report from Eulalio CHU, pt a/a/o [id number] in bed with no signs of distress or other issues at this time. IV on the right wrist gauge#22 running NS@100ml.hr. call light within reach, bed in lowest position, side rales up x2. I will f/u as needed
[2019-06-22 08:00] VITALS: BP 148/87
--- NOTE | 2019-06-22 08:06 | NUR ---
HAND-OFF: Report given to Juan Daniel CHU.
[2019-06-22] MEDS ORDERED: NORCO 5-325 TA1 EAC1 ORAL (10:21)
[2019-06-22] MEDS ORDERED: FLOMAX0.4 MG ORAL (10:21)
[2019-06-22] MEDS ORDERED: NORVASC5 MG ORAL (10:21)
--- NOTE | 2019-06-22 10:22 | Discharge Summary ---
Discharge Summary Hospital Course Date of Admission Jun 18, 2019 at 02:45 Date of Discharge 06/22/19 Admitting Diagnosis kidney stone, intractable pain HPI Jaret Temple is a 54 year old male who was admitted on Jun 18, 2019 at 02:45 for Kidney Stone/Intractable Pain Consultations Urology Procedures Cystoscopy, lithotripsy Hospital Course 54 year old man admitted with 15 mm ureteral stone causing lower abdominal pain. Admitted to medical service, treated supportively. Seen by Urology and underwent Left ureteroscopy, laser lithotripsy, double-J stent placement, cystoscopy, and fluoroscopy. Symptoms improved and he was cleared for discharge , will follow up with Dr. Ceron in 2 weeks for stent removal. Will continue Flomax. Patient also started on amlodipine 10 mg carmelo elevated blood pressures, will continue as outpatient for hypertension Time spent on preparing discharge was 35 mins, including coordination with RN, case reviewer and consulting MDs Discharge Medications New Medications: Amlodipine Besylate (Norvasc) 5 Mg Tablet 10 MG ORAL DAILY for 30 Days, #30 TAB Hydrocodone Bit/Acetaminophen 5-325* ([place] 5-325 Tablet*) 1 Each Tablet 1 TAB ORAL Q4H PRN for 30 Days, #30 TAB Tamsulosin HCl (Flomax) 0.4 Mg Cap.er.24h 0.4 MG ORAL BEDTIME for 30 Days, #30 CAP Continued Medications: Mirtazapine* (Mirtazapine*) 15 Mg Tablet 15 MG ORAL BEDTIME for anti depresssant, TAB Discharge Condition Upon Discharge: improving Discharge Vital Signs Last Vital Signs Date Time Temp Pulse Resp B/P (MAP) Pulse Ox O2 Delivery O2 Flow Rate FiO2 06/22/19 08:43 89 148/87 06/22/19 08:00 99.5 19 98 06/21/19 21:00 Room Air 06/21/19 19:00 6 Discharge Disposition Patient was discharged to home Discharge Diagnoses: (1) Kidney stone (2) Hydronephrosis Carlos Cifuentes MD Jun 22, 2019 10:22
[2019-06-22] MEDS ORDERED: cefTRIAXone 1 GM in D5W 55 ML IVPB SCH (10:30)
[2019-06-22] MEDS ORDERED: cefTRIAXone 1 GM in D5W 55 ML IVPB ONE (10:30)
[2019-06-22 12:00] VITALS: BP 156/95
[2019-06-22] MEDS ORDERED: Tubing IV Secondary IV ONE (15:44)
[2019-06-22 16:00] VITALS: BP 140/89
--- NOTE | 2019-06-22 16:03 | NUR ---
NURSE NOTES: Received order to d/c. discharge instructions and belongings given to patient as well as his home medications and RX for home. pt stated that he will go to his regular pharmacy to fill his RX. IV removed prior to d/c. pt left the floor with no signs of distress or other issues at this time. Pt is also aware that he needs to call Dr. Mckeon for a fallow up. I will f/u as needed.
--- NOTE | 2019-06-24 13:33 | Diagnostic Imaging Report ---
INDICATION: Pain, intraoperative TECHNIQUE: Intraoperative imaging Fluoroscopy time: 10.9 seconds Total dose: 0.17993 mGym2 Total number of images: 3 COMPARISON: None FINDINGS: Intraoperative images document placement of a left nephroureteral stent IMPRESSION: Intraoperative imaging, as described
== END 2019-06-22 15:45 | disposition home or self-care (01) | DRG 661 ==
LOC: EDUNIT# 23:03 → EDBD 23:03 → EMR 23:41 → 3E 06-18 02:45 → EDBEDREQ 06-18 03:34
PROC: 0T778DZ Dilation of Left Ureter with Intraluminal Device, Via Natural or Artificial Opening Endoscopic (ICD-10-PCS; principal; 2019-06-21 17:00)
PROC: 0TC78ZZ Extirpation of Matter from Left Ureter, Via Natural or Artificial Opening Endoscopic (ICD-10-PCS; principal; 2019-06-21 17:00)
DX: N13.2 Hydronephrosis with renal and ureteral calculous obstruction (principal); I10 Essential (primary) hypertension
CPT/HCPCS: 36415; 71046; 74176; 74420; 76000; 80048; 80053; 81003; 83690; 85025; 85610; 85730; 86850; 86900; 86901; 94003; 94150; 96374; 96375; 96376; 99285; J2250; J2405; J7030